=== PATIENT | female | born 1985 | race Caucasian/White ===

== ENCOUNTER 2018-09-03 09:58 | Emergency (ER) | payer MEDICAID ==
[~2018-09-03] VITALS: Ht 165.1 cm; Wt 74.5 kg
[2018-09-03 10:15] VITALS: BP 111/67
[2018-09-03] MEDS ORDERED: cefTRIAXone 1,000 MG in LIDOCAINE 1% ***ER ONLY *** 2.1 ML IM ONE (10:35)
[2018-09-03] MEDS ORDERED: KETOROLAC 60 MG/2 ML VIAL IM ONE (10:35)
[2018-09-03] MEDS ORDERED: cefTRIAXone 1,000 MG VIAL ONE (10:59)
[2018-09-03] MEDS ORDERED: LIDOCAINE MPF 1% - 5 mL VIAL 5 ML ONE (11:00)
[2018-09-03 11:39] LABS: APPEARANCE,URINE SL CLOUDY (CLEAR); BILIRUBIN,URINE NEGATIVE (NEGATIVE); BLOOD, URINE 3+ (NEGATIVE); COLOR,URINE YELLOW (YELLOW); LEUKOCYTE ESTERASE ,URINE 1+ (NEGATIVE); NITRITE, URINE NEGATIVE (NEGATIVE); UGLUCOSE NEGATIVE (NEGATIVE)
[2018-09-03 12:04] LABS: RBC,URINE 3-10 (FEW) /HPF (0-5)
[2018-09-03 12:24] VITALS: BP 111/67
== END 2018-09-03 12:24 | disposition home or self-care (01) ==
LOC: MED 09:58
DX: N30.90 Cystitis, unspecified without hematuria (principal)
CPT/HCPCS: 81001; 81025; 87086; 96372; 99283; J0696; J1885; J2001

== ENCOUNTER 2020-05-09 09:58 | Emergency (ER) | payer MEDICAID ==
[~2020-05-09] VITALS: Ht 162.6 cm; Wt 73.3 kg
--- NOTE | 2020-05-09 10:10 | NUR ---
AMBULATED TO BED 3
--- NOTE | 2020-05-09 10:15 | NUR ---
PT C/O LEFT SHOUDLER PAIN 06/18 FOR 2 DAYS ACCOMPANIED BY HEADACHE , TOOK SOME IBUPROFEN WITH SOME RELIEF , DENIES N/V/TRUAMA .PT AOX4 , AFIBRILE , AMBULATORY WITH STEADY GAIT, SCE , NO ROM OF LEFT SHOULDER ,. PMHXS DENIES.
--- NOTE | 2020-05-09 10:28 | NUR ---
DR CULVER AT BEDSIDE EVALUATING PT.
[2020-05-09] MEDS ORDERED: PROCHLORPERAZINE 10 MG/2 ML VIAL IM ONE (10:40)
[2020-05-09] MEDS ORDERED: IBUPROFEN 600 MG TAB PO ONE (10:40)
[2020-05-09] MEDS ORDERED: LIDOCAINE MPF 1% 10 MG/ML VIAL INJ ONE (10:40)
--- NOTE | 2020-05-09 11:07 | NUR ---
DR CULVER AT BEDSIDE INSTILLED NERVE BLOCK USING XYLOCAINE .
[2020-05-09 11:21] VITALS: BP 111/76
--- NOTE | 2020-05-09 11:22 | NUR ---
Patient discharged with v/s stable. Written and verbal after care instructions given and explained regarding general headache without a cause . Patient alert, oriented and verbalized understanding of instructions. Ambulatory with steady gait. All questions addressed prior to discharge. ID band removed. Patient advised to follow up with PMD. Rx of compazine given. Patient educated on indication of medication including possible reaction and side effects. Opportunity to ask questions provided and answered.
== END 2020-05-09 11:22 | disposition home or self-care (01) ==
LOC: MED 09:58
DX: R51 Headache (principal); M54.2 Cervicalgia; H53.149 Visual discomfort, unspecified
CPT/HCPCS: 81025; 96372; 99283; J0780; J2001

== ENCOUNTER 2020-12-23 09:45 | Emergency (ER) | payer MEDICAID ==
[~2020-12-23] VITALS: Ht 170.2 cm; Wt 77.1 kg
[2020-12-23 09:54] VITALS: BP 109/60
--- NOTE | 2020-12-23 09:54 | NUR ---
Patient ambulated to bed 7. RN evaluating the patient at bedside.
--- NOTE | 2020-12-23 10:19 | NUR ---
DR MELENDEZ AT BEDSIDE
--- NOTE | 2020-12-23 10:33 | NUR ---
35 YEAR OLD FEMALE COMPLAINS OF LEFT RIB PAIN X 3 DAYS. PT STATES SHE FELL ONTO LEFT SIDE WHEN WALKING, PAIN WHEN BREATHING. PT AOX4, BREATHING EVEN AND UNLABORED, SKIN WARM AND DRY. BED IN LOWEST POSITION, SEMI-FOWLERS, LOCKED, BED RAIL UPX1 PMH - DENIES ALLERGIES - NKA
--- NOTE | 2020-12-23 10:37 | NUR ---
Patient taken to x-ray via wheelchair by tech.
--- NOTE | 2020-12-23 11:30 | NUR ---
PT ALERT AND AWAKE, BREATHING EVEN AND UNLABORED. NO DISTRESS NOTED.
[2020-12-23] MEDS ORDERED: ONDA4TAB PO (12:05)
[2020-12-23] MEDS ORDERED: HYDR-5080 PO (12:05)
[2020-12-23 12:54] VITALS: BP 109/60
--- NOTE | 2020-12-23 12:55 | NUR ---
Patient discharged with v/s stable. Written and verbal after care instructions about rib fracture given and explained. Patient alert, oriented and verbalized understanding of instructions. Ambulatory with steady gait. All questions addressed prior to discharge. ID band removed. Patient advised to follow up with PMD. Rx of norco, zofran given. Patient educated on indication of medication including possible reaction and side effects. Opportunity to ask questions provided and answered.
== END 2020-12-23 12:55 | disposition home or self-care (01) ==
LOC: MED 09:45
DX: S22.32XA Fracture of one rib, left side, initial encounter for closed fracture (principal); W01.0XXA Fall on same level from slipping, tripping and stumbling without subsequent striking against object, initial encounter; Y93.89 Activity, other specified; Y92.89 Other specified places as the place of occurrence of the external cause; Y99.8 Other external cause status
CPT/HCPCS: 71101; 99283

== ENCOUNTER 2022-02-13 08:41 | Emergency (ER) | payer MEDICAID ==
[~2022-02-13] VITALS: Ht 160 cm; Wt 76.8 kg
[~2022-02-13 08:41] MED LIST: HYDR-5080 PO; ONDA4TAB PO
[2022-02-13 08:47] VITALS: BP 114/78
--- NOTE | 2022-02-13 08:53 | NUR ---
PT AMB TO BED 12.
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
[2022-02-13] MEDS ORDERED: NAPR-1704 PO (09:51)
[2022-02-13] MEDS ORDERED: SULF-58 PO (09:51)
[2022-02-13 09:56] VITALS: BP 114/78
--- NOTE | 2022-02-13 09:57 | NUR ---
Patient discharged with v/s stable. Written and verbal after care instructions given and explained. Patient alert, oriented and verbalized understanding of instructions. Ambulatory with steady gait. All questions addressed prior to discharge. ID band removed. Patient advised to follow up with PMD. Rx of naproxen, sulfamethoxazole (sent) given. Patient educated on indication of medication including possible reaction and side effects. Opportunity to ask questions provided and answered.
== END 2022-02-13 09:57 | disposition home or self-care (01) ==
LOC: MED 08:41
DX: N39.0 Urinary tract infection, site not specified (principal); M54.50 Low back pain, unspecified; R35.0 Frequency of micturition; Z79.899 Other long term (current) drug therapy
CPT/HCPCS: 81002; 81025; 99283